=== PATIENT | male | born 1975 | race Caucasian/White ===

== ENCOUNTER 2017-11-14 14:32 | Emergency (ER) | payer SELFPAY ==
[2017-11-14 14:37] VITALS: BP 122/85; PULSE 103; TEMP 98; BMI 23.3
[2017-11-14] MEDS ORDERED: CYCLOBENZAPRINE HCL 10 MG TABLET (FP) PO ONE (15:01)
--- NOTE | 2017-11-14 15:01 | PDOC ---
History of Present Illness - General Chief Complaint: Back Pain Stated Complaint: BACK PAIN Time Seen by Provider: 11/14/17 14:46 History Source: Patient Exam Limitations: No Limitations - History of Present Illness Initial Comments: 11/14/17 14:56 Best Contact:[phone] PCP:N/A Pmhx: Anxiety Pshx: Left foot reconstruction: 2007 Allergies: NO KNOWN DRUG ALLERGIES FH: Father 74 years old with cardiac condition, hypertension, hyperlipidemia and IDDM/mother 70 years old with breast CA Social Hx: Cigarettes/ 1pack/day x15 years Alcohol/ social Drugs/N /A LMP:N/A 42-year-old male presents to the ER complaining of left-sided upper and mid back pain without headache, dizziness, lightheadedness, nausea/vomiting, fever/ chills, facial pains, neck pain/stiffness, chest pain, shortness of breath, abdominal pains, flank pains, urinary symptoms, bladder or bowel dysfunction, extremity numbness or tingling sensation. Patient states he was moving numerous boxes causing him to strain his back. Patient is adamantly refusing images Past History - Past Medical History Allergies/Adverse Reactions: Allergies Allergy/AdvReac Type Severity Reaction Status Date / Time Penicillins Allergy Mild DIARRHEA Verified 11/14/17 14:33 Home Medications: Ambulatory Orders NK [No Known Home Medication] 12/05/14 COPD: No Psychiatric Problems: Yes (ANXIETY, PTSD.) - Immunization History Immunization Up to Date: Yes - Suicide/Smoking/Psychosocial Hx Smoking Status: Yes Smoking History: Current every day smoker Number of Cigarettes Smoked Daily: 20 Information on smoking cessation initiated: No Hx Alcohol Use: No Drug/Substance Use Hx: No Substance Use Type: Alcohol, Marijuana Review of Systems - Review of Systems Able to Perform ROS?: Yes Comments:: 11/14/17 14:58 CONSTITUTIONAL: Absent: fever, chills, diaphoresis, generalized weakness, malaise, loss of appetite HEENT: Absent: rhinorrhea, nasal congestion, throat pain, throat swelling, difficulty swallowing, mouth swelling, ear pain, eye pain, visual Changes CARDIOVASCULAR: Absent: chest pain, loss of consciousness, palpitations, irregular heart rate, peripheral edema RESPIRATORY: Absent: cough, shortness of breath, dyspnea with exertion, orthopnea, wheezing, stridor, hemoptysis GASTROINTESTINAL: Absent: abdominal pain, abdominal distension, nausea, vomiting, diarrhea, constipation, melena, hematochezia GENITOURINARY: Absent: dysuria, frequency, urgency, hesitancy, hematuria, flank pain, genital pain MUSCULOSKELETAL: +Right upper/mid back pain Absent: myalgia, arthralgia, joint swelling SKIN: Absent: rash, itching, pallor HEMATOLOGIC/IMMUNOLOGIC: Absent: easy bleeding, easy bruising, lymphadenopathy, frequent infections ENDOCRINE: Absent: unexplained weight gain, unexplained weight loss, heat intolerance, cold intolerance NEUROLOGIC: Absent: headache, focal weakness or paresthesias, dizziness, unsteady gait, seizure, mental status changes, bladder or bowel incontinence PSYCHIATRIC: Absent: anxiety, depression, suicidal or homicidal ideation, hallucinations. Is the patient limited Macedonian proficient: No *Physical Exam - Vital Signs Last Vital Signs Temp Pulse Resp BP Pulse Ox 98.0 F 103 H 18 122/85 99 11/14/17 14:33 11/14/17 14:33 11/14/17 14:33 11/14/17 14:33 11/14/17 14:33 - Physical Exam Comments: 11/14/17 14:59 GENERAL: Well developed, well nourished. Awake and alert. No acute distress. HEENT: Normocephalic, atraumatic. PERRLA, EOMI. No conjunctival pallor. Sclera are non- icteric. Moist mucous membranes. Oropharynx is clear. NECK: Supple. Full ROM. No JVD. Carotid pulses 2+ and symmetric, without bruits. No thyromegaly. No lymphadenopathy. CARDIOVASCULAR: Regular rate and rhythm. No murmurs, rubs, or gallops. Distal pulses are 2+ and symmetric. PULMONARY: No evidence of respiratory distress. Lungs clear to auscultation bilaterally. No wheezing, rales or rhonchi. ABDOMINAL: Soft. Non-tender. Non-distended. No rebound or guarding. No organomegaly. Normoactive bowel sounds. MUSCULOSKELETAL Neg SLR Normal range of motion at all joints. No bony deformities or tenderness. No CVA tenderness. EXTREMITIES: No cyanosis. No clubbing. No edema. No calf tenderness. SKIN: Warm and dry. Normal capillary refill. No rashes. No jaundice. NEUROLOGICAL: Alert, awake, appropriate. Cranial nerves 2-12 intact. No deficits to light touch and temperature in face, upper extremities and lower extremities. No motor deficits in the in face, upper extremities and lower extremities. Normoreflexic in the upper and lower extremities. Normal speech. Toes are down- going bilaterally. Gait is normal without ataxia. PSYCHIATRIC: Cooperative. Good eye contact. Appropriate mood and affect. *DC/Admit/Observation/Transfer Diagnosis at time of Disposition: Strain of muscle at thorax level - Discharge Dispostion Condition at time of disposition: Stable Decision to Admit order: No - Referrals Referrals: Lars Escalera MD [Staff Physician] - Sukumar Fletcher MD [Staff Physician] - - Patient Instructions Printed Discharge Instructions: DI for Thoracic Back Pain Additional Instructions: Rest Take Tylenol alternating with Motrin as needed for pain Follow-up with either the orthopedic surgeon or the neurosurgeon listed on your discharge Return back to the emergency department for severe/persistent or worsening symptoms, bladder or bowel dysfunction. - Post Discharge Activity
[2017-11-14] MEDS ORDERED: KETOROLAC TROMETHAMINE 60 MG/2 ML VIAL IM ONE (15:02)
[2017-11-14] MEDS ORDERED: KETOROLAC TROMETHAMINE 60 MG/2 ML VIAL ONE (15:03)
[2017-11-14] MEDS ORDERED: CYCLOBENZAPRINE HCL 10 MG TABLET (FP) ONE (15:07)
== END 2017-11-14 15:48 | disposition home or self-care (01) ==
LOC: JERFT 14:32
PROC: 3E0233Z Introduction of Anti-inflammatory into Muscle, Percutaneous Approach (ICD-10-PCS; principal; 2017-11-14)
DX: S29.012A Strain of muscle and tendon of back wall of thorax, initial encounter (principal); X50.0XXA Overexertion from strenuous movement or load, initial encounter; Y93.89 Activity, other specified; Y92.89 Other specified places as the place of occurrence of the external cause; Y99.0 Civilian activity done for income or pay; F17.210 Nicotine dependence, cigarettes, uncomplicated
CPT/HCPCS: 99281-25

== ENCOUNTER 2022-03-20 23:32 | Emergency (ER) | payer OTHER ==
[2022-03-20 23:38] VITALS: BP 121/73; PULSE 70; RESP 20; TEMP 97.5; BMI 23.6
== END 2022-03-21 | disposition home or self-care (01) ==
LOC: JER 23:32
DX: Z11.52 Encounter for screening for COVID-19 (principal)
CPT/HCPCS: 99281-25; C9803-CS; U0003; U0005

== ENCOUNTER 2022-07-11 19:34 | Emergency (ER) | payer OTHER ==
[2022-07-11] MEDS ORDERED: KETOROLAC TROMETHAMINE 30 MG/1 ML VIAL IM ONE (19:42)
[2022-07-11] MEDS ORDERED: KETOROLAC TROMETHAMINE 30 MG/1 ML VIAL ONE (19:44)
[2022-07-11 19:49] VITALS: BP 139/83; PULSE 75; RESP 17; TEMP 98.3; BMI 22.8
== END 2022-07-11 20:01 | disposition home or self-care (01) ==
LOC: FER 19:34
PROC: 3E0233Z Introduction of Anti-inflammatory into Muscle, Percutaneous Approach (ICD-10-PCS; principal; 2022-07-11)
DX: K02.9 Dental caries, unspecified (principal); K08.89 Other specified disorders of teeth and supporting structures
CPT/HCPCS: 99284-25

== ENCOUNTER 2022-12-09 19:16 | Emergency (ER) | payer OTHER ==
[2022-12-09 19:27] VITALS: BP 122/86; PULSE 68; RESP 16; TEMP 98.8; BMI 22.8
[2022-12-09] MEDS ORDERED: DIPHTH,PERTUSS(ACELL),TET 0.5 ML DISP.SYRIN IM ONE ×2 (19:59→20:02)
== END 2022-12-09 20:08 | disposition home or self-care (01) ==
LOC: FER 19:16
PROC: 0HQ1XZZ Repair Face Skin, External Approach (ICD-10-PCS; principal; 2022-12-09)
PROC: 3E0234Z Introduction of Serum, Toxoid and Vaccine into Muscle, Percutaneous Approach (ICD-10-PCS; 2022-12-09)
DX: S01.112A Laceration without foreign body of left eyelid and periocular area, initial encounter (principal); W22.02XA Walked into lamppost, initial encounter
CPT/HCPCS: 12011-25; 90471; 90715; 99282-25

== ENCOUNTER 2023-09-23 17:02 | Emergency (ER) | payer OTHER ==
[2023-09-23 17:24] VITALS: BP 113/83; PULSE 90; RESP 18; TEMP 97.8; BMI 22.1
[2023-09-23] MEDS ORDERED: KETOROLAC TROMETHAMINE 30 MG/1 ML VIAL ONE (17:30)
[2023-09-23] MEDS: KETOROLAC TROMETHAMINE 30 MG/1 ML VIAL IM ONE (17:36)
== END 2023-09-23 18:25 | disposition home or self-care (01) ==
LOC: FER 17:02
PROC: 3E0233Z Introduction of Anti-inflammatory into Muscle, Percutaneous Approach (ICD-10-PCS; principal; 2023-09-23)
DX: S86.112A Strain of other muscle(s) and tendon(s) of posterior muscle group at lower leg level, left leg, initial encounter (principal); X50.1XXA Overexertion from prolonged static or awkward postures, initial encounter; Y92.000 Kitchen of unspecified non-institutional (private) residence as the place of occurrence of the external cause
CPT/HCPCS: 73590-TC-LT-FY; 99284-25